=== PATIENT | male | born 1985 | race African-American/Black ===

== ENCOUNTER 2017-07-21 16:12 | Emergency (ER) | payer SELFPAY ==
[2017-07-21] MEDS ORDERED: Ibuprofen 800 MG TAB ONE (16:44)
== END 2017-07-21 16:50 | disposition home or self-care (01) ==
LOC: NAV ERS 16:12
DX: B35.3 Tinea pedis (principal); K08.89 Other specified disorders of teeth and supporting structures; F17.210 Nicotine dependence, cigarettes, uncomplicated
CPT/HCPCS: 99282